=== PATIENT | female | born 1980 | race Caucasian/White ===

== ENCOUNTER → 2018-02-14 | Outpatient (CLI) | payer OTHER | END | disposition home or self-care (01) | LOC: RAD 09:24 | DX: M77.32 Calcaneal spur, left foot (principal); M77.31 Calcaneal spur, right foot; G60.0 Hereditary motor and sensory neuropathy | CPT/HCPCS: 73600; 73620 ==

== ENCOUNTER → 2018-02-23 | Day surgery (SDC) | payer OTHER ==
[~2018-02-23] MED LIST: LIDOCAINE 1% PF 2 ML VIAL. ID; LIDOCAINE 2% PF Vial for OR 5 ML VIAL.; MIDAZOLAM HCL/PF 2 MG/2 ML VIAL. IV; PROPOFOL 40 ML IV; fentaNYL PF VIAL 100 MCG/2 ML VIAL IV
[2018-02-23] MEDS: IV RINGERS,LACTATED 1000ML 1,000 ML IV (11:31)
[2018-02-23 12:48] LABS: POC GLUCOSE 116 mg/dL (70-99)
== END ==
LOC: ENDOS 12:07
DX: K29.80 Duodenitis without bleeding (principal); K52.9 Noninfective gastroenteritis and colitis, unspecified; K29.50 Unspecified chronic gastritis without bleeding; K64.0 First degree hemorrhoids; D12.3 Benign neoplasm of transverse colon; E11.21 Type 2 diabetes mellitus with diabetic nephropathy; E11.42 Type 2 diabetes mellitus with diabetic polyneuropathy; I10 Essential (primary) hypertension; E78.00 Pure hypercholesterolemia, unspecified; M19.90 Unspecified osteoarthritis, unspecified site; N39.0 Urinary tract infection, site not specified; F41.8 Other specified anxiety disorders; K21.9 Gastro-esophageal reflux disease without esophagitis; F17.210 Nicotine dependence, cigarettes, uncomplicated; E66.9 Obesity, unspecified; Z68.31 Body mass index [BMI] 31.0-31.9, adult; Z98.890 Other specified postprocedural states; Z94.7 Corneal transplant status; Z72.89 Other problems related to lifestyle; Z88.1 Allergy status to other antibiotic agents; Z79.1 Long term (current) use of non-steroidal anti-inflammatories (NSAID); Z79.4 Long term (current) use of insulin; Z79.899 Other long term (current) drug therapy; Z88.0 Allergy status to penicillin; F32.9 Major depressive disorder, single episode, unspecified; Z83.3 Family history of diabetes mellitus; Z80.3 Family history of malignant neoplasm of breast; Z82.3 Family history of stroke
CPT/HCPCS: 43239; 45380; 45385; 82962; J2001; J2704

== ENCOUNTER → 2018-05-10 | Outpatient (CLI) | payer OTHER ==
[2018-02-23 14:10] VITALS: BP 128/73
[~2018-05-10] MED LIST changes: +CITA10TA8 PO; +GABA-586 PO; +HYDR-2766 PO; +IBUP-1060 PO; +INSU100I15 SQ; +INSU300I SQ; -LIDOCAINE 1% PF 2 ML VIAL. ID; -LIDOCAINE 2% PF Vial for OR 5 ML VIAL.; +LISI10TA2 PO; +MELO15TA23 PO; -MIDAZOLAM HCL/PF 2 MG/2 ML VIAL. IV; +PANT20TA2 PO; -PROPOFOL 40 ML IV; -fentaNYL PF VIAL 100 MCG/2 ML VIAL IV; +lantus solostar
--- NOTE | 2018-05-10 13:22 | RAD ---
HEPATOBILIARY SCAN WITH EJECTION FRACTION 05/10/2018 1:16 PM History: RUQ PAIN X 2 WEEKS Procedure: Serial static images are obtained of the liver and biliary system in the frontal projection following IV administration of 5.5 mCi of Technetium 99m Choletec. After filling of the gallbladder, a fat-containing nutritional supplement was administered orally and imaging of the abdomen continued for approximately 1 hour. Findings: There is prompt hepatic clearance of tracer from the blood pool. There is homogeneous distribution throughout the liver. Gallbladder ejection fraction is 81 percent. IMPRESSION: 1. The cystic duct and common bile duct are patent. Negative for acute cholecystitis. 2. The gallbladder ejection fraction appears grossly normal Electronically signed by: Be Anthony MD (05/10/2018 1:18 PM) [id number]
== END | disposition home or self-care (01) ==
LOC: NM 09:56
PROVIDERS: ATTEND Physician Assistant Medical
DX: R10.11 Right upper quadrant pain (principal); I10 Essential (primary) hypertension; E11.9 Type 2 diabetes mellitus without complications
CPT/HCPCS: 78226; 96374; 96375; A9537